=== PATIENT | female | born 1960 | race Caucasian/White ===

== ENCOUNTER 2019-09-14 05:30 | Inpatient (IN) | payer BC ==
[2019-09-07 14:48] LABS: BASOPHILS % (AUTO) 0.4 % (0-1); EOSINOPHILS # (AUTO) 0.2 X10'3 (0-0.9); EOSINOPHILS % (AUTO) 2.4 % (0-6); LYMPHOCYTES # (AUTO) 2.4 X10'3 (1.1-4.8); LYMPHOCYTES % (AUTO) 33.3 % (21-51); MEAN CORPUSCULAR HGB CONC 33.7 g/dL (33.0-36.5); MEAN CORPUSCULAR VOLUME 91.8 FL (78-98); MEAN PLATELET VOLUME 7.4 FL (7.4-10.4); MONOCYTES # (AUTO) 0.6 X10'3 (0-0.9); MONOCYTES % (AUTO) 8.1 % (2-12); NEUTROPHILS % (AUTO) 55.8 % (42-75); PRE OP HEMATOCRIT 40.5 % (35.0-45.0); PRE OP HEMOGLOBIN 13.6 g/dL (12.0-16.0); PRE OP PLATELET COUNT 301 X10'3 (140-440); RED BLOOD COUNT 4.41 X10'6 (4.20-5.60); RED CELL DISTRIBUTION WIDTH 13.8 % (11.5-14.5)
[2019-09-07 14:49] LABS: PRE OP PROTIME 9.8 SECONDS (9.0-12.0)
[2019-09-07 15:01] LABS: ALBUMIN 3.7 G/DL (3.4-5.0); ALKALINE PHOSPHATASE 55 IU/L (46-116); BLOOD UREA NITROGEN 8 MG/DL (7-18); BUN/CREATININE RATIO 8.1 (6.6-38.0); CALCIUM 8.4 MG/DL (8.5-10.1); CHLORIDE 106 MMOL/L (99-107); CREATININE 0.99 MG/DL (0.40-0.90); PRE OP ALT 31 U/L (30-65); PRE OP ANION GAP 9 (8-16); PRE OP AST 29 U/L (10-37); PRE OP BILIRUB, TOTAL 0.4 MG/DL (0.0-1.0); PRE OP GLUCOSE 110 MG/DL (70-104); PRE OP POTASSIUM 4.2 MMOL/L (3.4-5.1); PRE OP SODIUM 143 MMOL/L (135-145); TOTAL CARBON DIOXIDE 28.4 MMOL/L (24-32); TOTAL PROTEIN 7.4 G/DL (6.4-8.2); eGFR 58 ML/MIN
[~2019-09-14] VITALS: Ht 157.5 cm; Wt 91.5 kg
[2019-09-14] VITALS (18 sets, daily range): BP systolic 120–151; BP diastolic 72–90
[~2019-09-14 05:30] MED LIST: LOSA50TA3 PO; LOVA20TA2 PO; OMEP-50 PO; TRAZ150T78 PO; ceFAZolin 2gm in dextrose, iso 50 ML IV ONE; cefazolin/dext.iso 2gm/100ml 100 ML IV ONE; famotidine 20mg tablet PO ONE; ringers solution, lacted 1,000 ML IV SCH
[2019-09-14] MEDS ORDERED: LIDOcaine 1% (10mg/ml) 2ml vial ONE (06:11)
[2019-09-14] MEDS ORDERED: BUPIVAcaine/PF 2.5 mg/ml (0.25%) 30ml vial ONE (06:41)
[2019-09-14] MEDS ORDERED: LIDOcaine 1% 30ml preserv. free vial ONE (06:41)
[2019-09-14] MEDS ORDERED: ringers solution, lacted 1,000 ML IV SCH (07:12)
[2019-09-14] MEDS ORDERED: fentaNYL/PF 50MCG/1 ML 2ML syringe IV PRN (07:15)
[2019-09-14] MEDS ORDERED: morphine 2 MG/ML inj. syringe IV PRN (07:15)
[2019-09-14] MEDS ORDERED: hydrALAZINE 20mg/ml inj. IV PRN (07:15)
[2019-09-14] MEDS ORDERED: labetalol 20mg/4ml (5mg/ml) syringe IV PRN (07:15)
[2019-09-14] MEDS ORDERED: morphine 4 MG/ML inj SYRINge IV PRN (07:15)
[2019-09-14] MEDS ORDERED: ondansetron/PF 4mg/2ml inj IV PRN ×2 (07:15→11:05)
[2019-09-14] MEDS ORDERED: fentaNYL /PF 50mcg/ml 5ml ampule ONE (07:16)
[2019-09-14] MEDS ORDERED: midazolam 2 mg/2 ml injection ONE (07:16)
[2019-09-14] MEDS ORDERED: dexamethasone sod phosphate 4mg/ml inj. ONE (07:17)
[2019-09-14] MEDS ORDERED: rocuronium 10mg/ml inj IV ONE ×3 (07:17→09:56)
[2019-09-14] MEDS ORDERED: BUPIVAcaine/PF 7.5mg/ml (0.75%) 10ml vial ONE (07:17)
[2019-09-14] MEDS ORDERED: LIDOcaine 2% (20mg/ml) 5ml vial ONE (07:17)
[2019-09-14] MEDS ORDERED: glycopyrrolate 0.2mg/ml inj ONE (07:17)
[2019-09-14] MEDS ORDERED: ondansetron/PF 4mg/2ml inj ONE (07:17)
[2019-09-14] MEDS ORDERED: propofol inj 20 ML IV ONE (07:17)
[2019-09-14] MEDS ORDERED: sevoflurane 250ml liquid IH ONE (07:27)
[2019-09-14] MEDS ORDERED: labetalol 20mg/4ml (5mg/ml) syringe IV ONE ×2 (08:18→09:23)
[2019-09-14] MEDS ORDERED: fentaNYL/PF 50MCG/1 ML 2ML syringe ONE (09:57)
[2019-09-14] MEDS ORDERED: neostigmine methylsulfate 1 MG/ML 10ml vial ONE (10:19)
--- NOTE | 2019-09-14 10:58 | NUR ---
Received from OR via , accompanied by Anesthesiologist DR CASAS and report given by Anesthesiolgist. AWAKENS TO VOICE. VITALS STABLE. NO BLEEDING NOTED. TAMIKO PAIN. TELLES WITH CLEAR URINE.
[2019-09-14] MEDS ORDERED: Potassium Cl inj 20 MEQ in ringers solution, lacted 1,000 ML IV SCH (11:03)
[2019-09-14] MEDS ORDERED: CADD PCA waste documentation MC PRN (11:05)
[2019-09-14] MEDS ORDERED: HYDROmorphone/NS 1 mg/ml CADD 50 ML IV SCH (11:05)
[2019-09-14] MEDS ORDERED: naloxone 0.4 mg/ml inj IV PRN (11:05)
[2019-09-14] MEDS: fentaNYL/PF 50MCG/1 ML 2ML syringe IV PRN ×2 (11:32→13:14)
[2019-09-14] MEDS: HYDROmorphone/NS 1 mg/ml CADD 50 ML IV SCH ×7 (12:06→23:00)
--- NOTE | 2019-09-14 12:38 | NUR ---
Report called to receiving nurse. Transferred via BED Belongings . Special Issues communicated to receiving nurse. AWAKE AND ORIENTED. VITALS STABLE. DRESSINGS DI. STATES ONLY MIN PAIN. TO SURGICAL [facility] 346A AT THIS TIME.
--- NOTE | 2019-09-14 13:10 | NUR ---
I have received report from BEBE Mansfield from recovery and had the opportunity to ask questions and assume patient care. Pt is A&O x3. c/o mild discomfort. stable vital signs.
--- NOTE | 2019-09-14 19:05 | NUR ---
Problems reprioritized. Patient report given, questions answered & plan of care reviewed with BEBE Pang. Pt tolerating Liquids diet well.
--- NOTE | 2019-09-14 19:08 | NUR ---
Patient in room [facility]. I have received report from Roxanne SPENCE and had the opportunity to ask questions and assume patient care.
[2019-09-14] MEDS ORDERED: traZODone 50mg tablet PO SCH (21:00)
[2019-09-14] MEDS ORDERED: losartan 50mg tablet PO SCH (21:00)
[2019-09-14] MEDS: Potassium Cl inj 20 MEQ in ringers solution, lacted 1,000 ML IV SCH (23:13)
[2019-09-15] VITALS: BP 97/51
[2019-09-15] MEDS: HYDROmorphone/NS 1 mg/ml CADD 50 ML IV SCH ×6 (01:00→11:00)
[2019-09-15 04:00] VITALS: BP 131/85
[2019-09-15 05:49] LABS: BASOPHILS % (AUTO) 0.1 % (0-1); EOSINOPHILS % (AUTO) 0 % (0-6); HEMATOCRIT 37.6 % (35.0-45.0); HEMOGLOBIN 12.8 g/dl (12.0-16.0); LYMPHOCYTES % (AUTO) 18.9 % (21-51); MEAN CORPUSCULAR HEMOGLOBIN 31.4 PG (27.0-31.0); MEAN CORPUSCULAR VOLUME 92.3 FL (78-98); MEAN PLATELET VOLUME 7.1 FL (7.4-10.4); MONOCYTES # (AUTO) 0.8 X10'3 (0-0.9); MONOCYTES % (AUTO) 7.9 % (2-12); NEUTROPHILS # (AUTO) 7.7 X10'3 (1.8-7.7); NEUTROPHILS % (AUTO) 73.1 % (42-75); PLATELET COUNT 288 X10'3 (140-440); RED BLOOD COUNT 4.07 X10'6 (4.20-5.60); RED CELL DISTRIBUTION WIDTH 14.1 % (11.5-14.5); WHITE BLOOD COUNT 10.5 X10'3 (4.5-11.0)
[2019-09-15 06:00] LABS: ALBUMIN 3.2 G/DL (3.4-5.0); ANION GAP 7 (8-16); BLOOD UREA NITROGEN 9 MG/DL (7-18); BUN/CREATININE RATIO 9.9 (6.6-38.0); CALCIUM 8.6 MG/DL (8.5-10.1); CHLORIDE 104 MMOL/L (99-107); CREATININE 0.91 MG/DL (0.40-0.90); GLUCOSE 102 MG/DL (70-104); POTASSIUM 4.4 MMOL/L (3.5-5.1); SODIUM 142 MMOL/L (135-145); TOTAL CARBON DIOXIDE 30.9 MMOL/L (24-32); eGFR 64 ML/MIN
--- NOTE | 2019-09-15 06:46 | NUR ---
Problems reprioritized. Patient report given, questions answered & plan of care reviewed with Roxanne SPENCE.
--- NOTE | 2019-09-15 06:47 | NUR ---
Patient in room [facility]. I have received report from BEBE Pang and had the opportunity to ask questions and assume patient care.
[2019-09-15] MEDS: Potassium Cl inj 20 MEQ in ringers solution, lacted 1,000 ML IV SCH (07:05)
[2019-09-15 07:35] VITALS: BP 131/85
[2019-09-15] MEDS ORDERED: atorvastatin 10mg tablet PO SCH (08:00)
[2019-09-15] MEDS ORDERED: oxyCODONE/APAP 5-325mg tablet PO PRN (11:05)
[2019-09-15 12:00] VITALS: BP 127/65
[2019-09-15] MEDS ORDERED: fluconazole 100mg tablet PO ONE (12:30)
[2019-09-15] MEDS ORDERED: CADD PCA waste documentation MC PRN (12:35)
[2019-09-15] MEDS ORDERED: HYDROmorphone/NS 1 mg/ml CADD 50 ML IV SCH (13:00)
--- NOTE | 2019-09-15 14:50 | NUR ---
Nutrition consult: Pt s/p Tj fundoplication seen at bedside for written and verbal full liquid and Tj fundoplication nutrition therapy educations. Pt verbalized understanding and states she read all material prior to surgery. Pt appears well prepared, states she has already bought groceries that follows appropriate nutrition therapy s/p surgery. Pt denies questions at this time. Pt provided with [employer] coupons. Pt reports a "so-so" appetite following surgery, currently on a full liquid diet, pending documentation of PO intake since diet advancement from clear liquids. Pt denies additional pain specifically following PO intake however reports being in pain during RD visit. Pt denies food allergies or difficulties chewing/swallowing. LBM 09/12. Pt states she isn't passing any gas however feels like it's "building up". Pt provided with RD contact information. Will remain available. Addendum: 09/15/19 at [address] Amended: Links added.
--- NOTE | 2019-09-15 18:25 | NUR ---
Problems reprioritized. Patient report given, questions answered & plan of care reviewed with BEBE Pang. Pt otlerating full liquid diet well. multiple voids and 3 loose BMs. Pt is waiting for D/C orders.
--- NOTE | 2019-09-15 18:36 | NUR ---
Patient in room [facility]. I have received report from Roxanne SPENCE and had the opportunity to ask questions and assume patient care.
--- NOTE | 2019-09-15 19:00 | NUR ---
Pt was discharged. discharge paper work was reviewed with pt. Iv was discontinued. I took the patient down in a wheelchair. Her boyfriend was present and drove her home
[2019-09-15] MEDS ORDERED: PER5325T PO (19:20)
== END 2019-09-15 19:50 | disposition home or self-care (01) | DRG 328 ==
LOC: PAS 05:30 → EDSTATUS 07:30 → SUR 3N 11:03 → UNDOADMIN 11:09
PROVIDERS: ADMIT Surgery; ATTEND Surgery
PROC: 0DV44ZZ Restriction of Esophagogastric Junction, Percutaneous Endoscopic Approach (ICD-10-PCS; 2019-09-14)
PROC: 8E0W4CZ Robotic Assisted Procedure of Trunk Region, Percutaneous Endoscopic Approach (ICD-10-PCS; 2019-09-14)
PROC: 0BQT4ZZ Repair Diaphragm, Percutaneous Endoscopic Approach (ICD-10-PCS; principal; 2019-09-14 07:27)
DX: K44.9 Diaphragmatic hernia without obstruction or gangrene (principal); E78.5 Hyperlipidemia, unspecified; I10 Essential (primary) hypertension; Z96.643 Presence of artificial hip joint, bilateral; K31.89 Other diseases of stomach and duodenum; K21.9 Gastro-esophageal reflux disease without esophagitis
CPT/HCPCS: Z7506; Z7508; 36415; 71045; 74220; 80048; 80053; 82948; 85025; 85610; 85730; 86885; 86900; 86901; 87081; 93005; A4215; A4618; C1758; G0378; J1100; J1170; J2001; J2250; J2405; J2704; J2710; J3010; J3480; J3490; J7120